=== PATIENT | female | born 1935 | race Caucasian/White ===

== ENCOUNTER → 2022-06-21 14:25 | Outpatient (BNVA) | payer OTHER, MEDICARE, MEDICAID, SELFPAY | PROVIDERS: Visit Provider Nurse Practitioner Family | DX: E11.9 Type 2 diabetes mellitus without complications (principal) | CPT/HCPCS: 83036 ==

== ENCOUNTER → 2022-08-05 15:51 | Outpatient (BNVA) | payer OTHER, MEDICARE, MEDICAID, SELFPAY | PROVIDERS: Visit Provider Family Medicine | DX: I10 Essential (primary) hypertension (principal); E11.9 Type 2 diabetes mellitus without complications; E05.00 Thyrotoxicosis with diffuse goiter without thyrotoxic crisis or storm | CPT/HCPCS: 80053; 80061; 82043; 84443; 85025 ==

== ENCOUNTER → 2023-04-21 11:24 | Outpatient (BNVA) | payer OTHER, MEDICARE, MEDICAID, SELFPAY | PROVIDERS: PCP Nurse Practitioner Family; Visit Provider Nurse Practitioner Family | DX: I10 Essential (primary) hypertension (principal); E11.9 Type 2 diabetes mellitus without complications | CPT/HCPCS: 80053; 80061; 83036; 84443 ==

== ENCOUNTER 2023-10-20 20:02 | Emergency (ER) | payer MEDICARE, MEDICAID, SELFPAY ==
[2023-10-20 20:03] VITALS: BP 142/65; PULSE 65; RESP 20; TEMP 36.6; O2SAT 97; BMI 27.3
--- NOTE | 2023-10-20 20:27 | XRR_ITS ---
PROCEDURE INFORMATION: Exam: XR Chest Exam date and time: 10/20/2023 8:43 PM Age: 88 years old Clinical indication: Other: AMS; Additional info: Altered mental status, reported fall TECHNIQUE: Imaging protocol: Radiologic exam of the chest. Views: 1 view. COMPARISON: No relevant prior studies available. FINDINGS: Lungs: Mild interstitial prominence, predominantly subpleural in distribution and in the mid lateral upper lung zones, likely chronic change. No consolidation. Pleural spaces: Unremarkable. No pleural effusion. No pneumothorax. Heart/Mediastinum: Unremarkable. No cardiomegaly. Bones/joints: Unremarkable. XR/XR chest 1V portable [id number] IMPRESSION: No acute cardiopulmonary disease.
--- NOTE | 2023-10-20 20:27 | CTR_ITS ---
PROCEDURE INFORMATION: Exam: CT Head Without Contrast Exam date and time: 10/20/2023 8:36 PM Age: 88 years old Clinical indication: Injury or trauma; Blunt trauma (contusions or hematomas); Patient HX: Patient says she fell according to her son, denies headache or pain to head from fall. ; Additional info: Fall with chronic altered mental status TECHNIQUE: Imaging protocol: Computed tomography of the head without contrast. Radiation optimization: All CT scans at this facility use at least one of these dose optimization techniques: automated exposure control; mA and/or kV adjustment per patient size (includes targeted exams where dose is matched to clinical indication); or iterative reconstruction. COMPARISON: No relevant prior studies available. RADIATION DOSE METRICS: Total DLP (mGy-cm): 1045 FINDINGS: Brain: There is [id number]-lizpaa cerebral atrophy. There are [id number] deep white matter microangiopathic ischemic changes. No acute hemorrhage is identified. No mass or mass effect is identified. Moderate right encephalomalacia. Cerebral ventricles: Moderately dilated ventricles secondary to atrophy. Paranasal sinuses: Visualized sinuses are unremarkable. No fluid levels. Mastoid air cells: Visualized mastoid air cells are well aerated. Bones/joints: Unremarkable. No acute fracture. Soft tissues: Unremarkable. CT/CT head wo con* [id number] IMPRESSION: 1. No acute intracranial pathology. 2. Senescent changes.
[2023-10-20 21:52] LABS: Basophils # 0.1 10^3/uL (0.0-0.1); Basophils % 0.9 %; Eosinophils # 0.2 10^3/uL (0.0-0.8); Eosinophils % 2.5 %; Lymphocytes # 2.8 10^3/uL (0.8-4.8); Lymphocytes % 28.3 %; Mean Corpuscular HGB Conc 32.6 g/dL (30-55); Mean Corpuscular Hemoglobin 30.6 pg (27-33); Mean Corpuscular Volume 93.8 fl (85-98); Mean Platelet Volume 9.9 fL (7.4-10.4); Monocytes # 0.5 10^3/uL (0.2-0.9); Monocytes % 4.8 %; Neutrophils # 6.15 10^3/uL (1.8-7.7); Neutrophils % 63.2 %; Nucleated Red Blood Cells % 0 %; Platelet Count 166 10^3/cmm (157-399); Red Blood Count 4.05 10^6/uL (3.85-5.65); Red Cell Distribution Width 12.6 % (12.1-15.1); White Blood Count 9.73 10^3/uL (3.29-11.43)
[2023-10-20 22:10] LABS: Alanine Aminotransferase 8 U/L (0-33); Albumin Level 3.7 g/dL (3.5-5.2); Alkaline Phosphatase 75 U/L (35-105); Anion Gap 16.3 (5-19); Aspartate Amino Transferase 9 U/L (0-32); Blood Urea Nitrogen 18 mg/dL (8-23); C Reactive Protein 7.6 mg/L (0.0-4.9); Calcium 8.9 mg/dL (8.5-10.5); Carbon Dioxide 24 mmol/L (22-29); Chloride 103 mmol/L (98-107); Creatinine Clr Calc Pharmacy 30.5427; Globulin 3.5 g/dL (1.3-4.6); Glucose 201 mg/dL (65-115); Osmolality Calculated 296 mOsm/kg (285-295); Potassium 4.3 mmol/L (3.5-5.1); Sodium 139 mmol/L (136-145); Total Bilirubin 0.2 mg/dL (0.15-1.2); Total Protein 7.2 g/dL (6.6-8.7)
[2023-10-20 22:20] LABS: Add Urine Microscopic? YES; Bilirubin Urine 1+ (Negative); Blood Urine Neg (Negative); Glucose Urine UA Norm (Normal); Ketones Urine Negative (Negative); Leukocyte Esterase Urine 2+ (Negative); Nitrate Urine Positive (Negative); Protein Urine Trace (Negative); Urine Appearance Cloudy (CLEAR); Urine Color Yellow (Yellow); Urobilinogen Urine Norm (Negative); pH Urine 5 (5-7)
[2023-10-20 22:21] LABS: Bacteria Urine 2+ /hpf; Hyaline Casts Urine 0-4 /lpf; RBC Urine 0-4 /hpf (0-2); Squamous Epithelial Cell Urine 0-4 /hpf (0-5)
[2023-10-20 22:22] LABS: Add Urine Culture? Yes
--- NOTE | 2023-10-20 22:28 | W.ED.GENADLT ---
HPI - General Adult General: Chief complaint: General Medical Stated complaint: FALL Time Seen by Provider: 10/20/23 20:18 History of Present Illness: 88-year-old female presents to the ER via EMS chief complaint of generalized weakness and fatigue has been going on for about a month patient appears to be a poor historian. Apparently the patient has had multiple frequent falls. Patient has recently suffered a stroke which she was recommended to go to rehab however she went home patient appears that she does not want to be here which her family contacted EMS to pick her up patient has no current complaints however just being aggravated that she is here patient does not recall having any recent falls or striking her head we will continue to follow. Associated symptoms: Reports malaise; Deny chest pain, dyspnea, headache(s), nausea, rash, palpitations or vomiting Review of Systems General: Reports: 10 or more systems reviewed and unremarkable except in HPI and below Const: Reports: fatigue and malaise; Denies: fever(s) or chills Eyes: Denies: change in vision or blurry vision Card: Denies: chest pain or palpitations Resp: Denies: dyspnea or productive cough GI: Denies: abdominal pain, nausea or vomiting : Denies: flank pain Musc: Denies: extremity pain or extremity swelling Skin/Breast: Denies: rash or pruritus Neuro: Denies: headache(s) Psych: Denies: anxiety or depression Eugene/Lymph: Denies: easy bleeding All/Imm: Denies: urticaria, throat swelling or facial swelling PFSH ED PFSH: Medical History Graves disease Hyperlipidemia Hypertension Diabetes Social History Smoking and tobacco/nicotine status: former use of tobacco/nicotine Alcohol intake: never Physical Exam Const: COMMON NORMALS: no acute distress, patient oriented x3 and healthy appearing HENMT: COMMON NORMALS: normocephalic and atraumatic HEAD & SCALP: normocephalic and atraumatic Eye: COMMON NORMALS: Equal, round and reactive pupils present and EOMs intact bilaterally PUPIL: Yes Equal, round and reactive pupils present Neck/C-Spine: COMMON NORMALS: full ROM, supple and no JVD Lymph: LYMPHATIC: no lymphadenopathy noted Chest: COMMONS NORMALS: normal inspection of the chest and normal palpation of entire chest wall Resp: COMMON NORMALS: normal respiratory effort, No retractions and clear to auscultation bilaterally EFFORT & INSPECTION: Yes able to speak in complete sentences and Yes symmetric chest movement AUSCULTATION: clear to auscultation bilaterally Cardio: COMMON NORMALS: no JVD, regular rate and regular rhythm RATE: regular rate RHYTHM: regular rhythm GI: COMMON NORMALS: Normal to inspection, nondistended, normoactive bowel sounds present, Soft to palpation and non-tender INSPECTION: Yes normal to inspection PALPATION: Yes Soft to palpation : COMMON NORMALS: Yes no CVA tenderness BLADDER/KIDNEY EXAM: Yes no CVA tenderness Back/Pelvis: COMMON NORMALS: no CVA tenderness Extremity: COMMON NORMALS: normal to inspection and full ROM Neuro: COMMON NORMALS: patient oriented x3, CN's II-XII intact bilaterally, moves all extremities and no focal motor deficits Psych: COMMON NORMALS: mental status grossly normal, Normal thought process present, cooperative and normal affect THOUGHT PROCESS: Normal thought process present Skin: COMMON NORMALS: no rashes or lesions noted GENERAL SKIN EXAM: no rashes or lesions noted Course Vital Signs: Vital signs: Vital Signs Temperature 98 F 10/20/23 20:03 Pulse Rate 65 10/20/23 20:03 Respiratory Rate 20 H 10/20/23 20:03 Blood Pressure 142/65 10/20/23 20:03 Pulse Oximetry 97 10/20/23 20:03 [facility] - General Adult Medical Decision Making Patient was originally refusing additional workup including lab work and imaging discussed patient and the need for further workup due to her frequent falls and weakness patient was found to have a urinary tract infection as well as be mildly dehydrated patient was provided a dose of Rocephin while in the emergency department will be subsequent discharging her home on some Macrobid did advise further follow-up with primary care in 2 to 3 days in which she was advised return the interim if any of her symptoms persist or worse remainder patient's lab work and imaging came back reassuring. Lab Data 10/20/23 21:50 10/20/23 21:50 Radiology Impressions Chest X-Ray 10/20/23 20:27 IMPRESSION: No acute cardiopulmonary disease. Head CT 10/20/23 20:27 IMPRESSION: 1. No acute intracranial pathology. 2. Senescent changes. Laboratory Results WBC 9.73 10^3/uL (3.29-11.43) 10/20/23 21:50 RBC 4.05 10^6/uL (3.85-5.65) 10/20/23 21:50 Hgb 12.40 g/dL (11.27-16.99) 10/20/23 21:50 Hct 38.0 % (36-47) 10/20/23 21:50 MCV 93.8 fl (85-98) 10/20/23 21:50 MCH 30.6 pg (27-33) 10/20/23 21:50 MCHC 32.6 g/dL (30-55) 10/20/23 21:50 RDW 12.6 % (12.1-15.1) 10/20/23 21:50 Plt Count 166 10^3/cmm (157-399) 10/20/23 21:50 MPV 9.9 fL (7.4-10.4) 10/20/23 21:50 Neut % (Auto) 63.2 % 10/20/23 21:50 Lymph % (Auto) 28.3 % 10/20/23 21:50 [place] % (Auto) 4.8 % 10/20/23 21:50 Eos % (Auto) 2.5 % 10/20/23 21:50 Baso % (Auto) 0.9 % 10/20/23 21:50 Neut # (Auto) 6.15 10^3/uL (1.8-7.7) 10/20/23 21:50 Lymph # (Auto) 2.8 10^3/uL (0.8-4.8) 10/20/23 21:50 [place] # (Auto) 0.5 10^3/uL (0.2-0.9) 10/20/23 21:50 Eos # (Auto) 0.2 10^3/uL (0.0-0.8) 10/20/23 21:50 Baso # (Auto) 0.1 10^3/uL (0.0-0.1) 10/20/23 21:50 Nucleated RBC % (auto) 0 % 10/20/23 21:50 Nucleated RBCs # 0.0 /100WBC 10/20/23 21:50 Sodium 139 mmol/L (136-145) 10/20/23 21:50 Potassium 4.3 mmol/L (3.5-5.1) 10/20/23 21:50 Chloride 103 mmol/L (98-107) 10/20/23 21:50 Carbon Dioxide 24 mmol/L (22-29) 10/20/23 21:50 Anion Gap 16.3 (5-19) 10/20/23 21:50 BUN 18 mg/dL (8-23) 10/20/23 21:50 Creatinine 1.1 mg/dL (0.5-0.9) H 10/20/23 21:50 GFR Calculation Not Reportable 10/20/23 21:50 Glucose 201 mg/dL (65-115) H 10/20/23 21:50 Calculated Osmolality 296 mOsm/kg (285-295) H 10/20/23 21:50 Calcium 8.9 mg/dL (8.5-10.5) 10/20/23 21:50 Total Bilirubin 0.2 mg/dL (0.15-1.2) 10/20/23 21:50 AST 9 U/L (0-32) 10/20/23 21:50 ALT 8 U/L (0-33) 10/20/23 21:50 Alkaline Phosphatase 75 U/L (35-105) 10/20/23 21:50 C-Reactive Protein 7.6 mg/L (0.0-4.9) H 10/20/23 21:50 Total Protein 7.2 g/dL (6.6-8.7) 10/20/23 21:50 Albumin 3.7 g/dL (3.5-5.2) 10/20/23 21:50 Globulin 3.5 g/dL (1.3-4.6) 10/20/23 21:50 Urine Color Yellow (Yellow) 10/20/23 22:07 Urine Appearance Cloudy (CLEAR) A 10/20/23 22:07 Urine pH 5 (5-7) 10/20/23 22:07 Ur Specific [place] 1.020 (1.005-1.030) 10/20/23 22:07 Urine Protein Trace (Negative) 10/20/23 22:07 Urine Glucose (UA) Norm (Normal) 10/20/23 22:07 Urine Ketones Negative (Negative) 10/20/23 22:07 Urine Blood Neg (Negative) 10/20/23 22:07 Urine Nitrate Positive (Negative) H 10/20/23 22:07 Urine Bilirubin 1+ (Negative) H 10/20/23 22:07 Urine Urobilinogen Norm mg/dL (Negative) 10/20/23 22:07 Ur Leukocyte Esterase 2+ (Negative) H 10/20/23 22:07 Urine RBC 0-4 /hpf (0-2) H 10/20/23 22:07 Urine WBC 5-10 /hpf (0-5) H 10/20/23 22:07 Ur Squamous Epith Cells 0-4 /hpf (0-5) H 10/20/23 22:07 Amorphous Sediment Not Reportable 10/20/23 22:07 Urine Bacteria 2+ /hpf (NONE) H 10/20/23 22:07 Hyaline Casts 0-4 /lpf H 10/20/23 22:07 All radiology interpretation(s) finalized by discharge Discharge Plan Discharge Patient Disposition: Home Clinical Impression: Generalized weakness Urinary tract infection Qualifiers: Urinary tract infection type: acute cystitis Condition: Stable Prescriptions: New Macrobid 100 mg capsule 100 mg PO BID 7 Days Qty: 14 0RF Rx Instructions: must administer with a meal/food No Action Janumet 50-1,000 mg tablet 1 tab PO BID Qty: 180 3RF telmisartan 40 mg tablet 40 mg PO DAILY Qty: 90 3RF polymyxin B sulf-trimethoprim [Polytrim] 10,000 unit- 1 mg/mL drops 1 drp ophthalmic (eye) Q3H 7 Days Qty: 10 0RF Rx Instructions: while awake; do not exceed 6 doses in 24 hours cetirizine [Zyrtec] 10 mg tablet 10 mg PO DAILY Qty: 14 0RF Discharge Orders: Discharge ED (Routine); Ordered 10/20/23 Ordered By: Vasquez Treviño Discharge Diet: Advance as tolerated and As Directed Discharge Activity: Increase activity as tolerated Patient Instructions: Fall Prevention (ED), Urinary Tract Infection - Women, Weakness (Generalized) Activity Restrictions/Additional Instructions: Please further follow-up primary care in 3 to 5 days encourage increased p.o. intake of fluids take antibiotics for your urinary tract infection in which please return the interim if any of your symptoms persist or worse. Coding Level of Care Code ED Hotel Lobby Concierge for Anahi Duggan
[2023-10-20] MEDS: cefTRIAXone 1,000 MG in sodium chloride 0.9% (plus) 50 ML 100 MG IV (22:37)
[2023-10-20 22:59] VITALS: BP 142/65; PULSE 65; RESP 20; TEMP 36.6; O2SAT 97
== END 2023-10-21 00:26 | disposition home or self-care (01) ==
PROVIDERS: Emergency Provider Emergency Medicine
DX: N30.00 Acute cystitis without hematuria (principal); R53.1 Weakness; E78.5 Hyperlipidemia, unspecified; I10 Essential (primary) hypertension; E11.9 Type 2 diabetes mellitus without complications; Z87.891 Personal history of nicotine dependence
CPT/HCPCS: 70450; 71045; 80053; 81001; 85025; 86140; 87077; 87086; 87186; 96374; 99285; J0696

== ENCOUNTER 2023-11-25 14:46 | Inpatient (IN) | payer MEDICARE, MEDICAID, SELFPAY ==
[2023-11-25] VITALS (7 sets, daily range): BP systolic 149–187; BP diastolic 76–109; PULSE 70–124; RESP 16–18; TEMP 36.7–36.8; O2SAT 94–96; BMI 29.9
[2023-11-25 15:31] LABS: Add Urine Microscopic? YES; Bacteria Urine 1+ /hpf; Bilirubin Urine 1+ (Negative); Blood Urine Neg (Negative); Glucose Urine UA Norm (Normal); Ketones Urine 1+ (Negative); Leukocyte Esterase Urine Negative (Negative); Mucus Urine TRACE /hpf; Nitrate Urine Negative (Negative); Protein Urine 1+ (Negative); Specific Gravity, Urine 1.025 (1.005-1.030); Urine Appearance Clear (CLEAR); Urine Color Yellow (Yellow); Urobilinogen Urine Norm (Negative); WBC Urine 0-4 /hpf (0-5); pH Urine 5 (5-7)
[2023-11-25 15:32] LABS: Add Urine Culture? No; Amorphous Sediment Urine 1+ /hpf; Fine Granular Casts Urine 15-25 /lpf
[2023-11-25 17:14] LABS: Basophils # 0.1 10^3/uL (0.0-0.1); Basophils % 1.2 %; Eosinophils # 0.2 10^3/uL (0.0-0.8); Eosinophils % 2.3 %; Hematocrit 48.9 % (36-47); Lymphocytes # 1.5 10^3/uL (0.8-4.8); Lymphocytes % 14.5 %; Mean Corpuscular HGB Conc 32.5 g/dL (30-55); Mean Corpuscular Hemoglobin 29.9 pg (27-33); Mean Corpuscular Volume 92.1 fl (85-98); Mean Platelet Volume 11.6 fL (7.4-10.4); Monocytes # 0.6 10^3/uL (0.2-0.9); Monocytes % 5.5 %; Neutrophils # 7.91 10^3/uL (1.8-7.7); Neutrophils % 75.7 %; Nucleated Red Blood Cells % 0 %; Platelet Count 179 10^3/cmm (157-399); Red Blood Count 5.31 10^6/uL (3.85-5.65); Red Cell Distribution Width 12.7 % (12.1-15.1); White Blood Count 10.45 10^3/uL (3.29-11.43)
[2023-11-25 17:26] LABS: Alanine Aminotransferase 8 U/L (0-33); Alkaline Phosphatase 103 U/L (35-105); Anion Gap 20.8 (5-19); Aspartate Amino Transferase 11 U/L (0-32); Blood Urea Nitrogen 26 mg/dL (8-23); Calcium 9.8 mg/dL (8.5-10.5); Carbon Dioxide 21 mmol/L (22-29); Chloride 102 mmol/L (98-107); Globulin 4.9 g/dL (1.3-4.6); Glucose 192 mg/dL (65-115); Osmolality Calculated 300 mOsm/kg (285-295); Potassium 3.8 mmol/L (3.5-5.1); Sodium 140 mmol/L (136-145); Total Bilirubin 0.4 mg/dL (0.15-1.2); Total Protein 8.9 g/dL (6.6-8.7)
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
--- NOTE | 2023-11-25 20:34 | ECG_ITS ---
[facility] Test Date: 2023-11-25 Pat Name: Norah Costa Department: Room: 268 Gender: Female Dial Polisher: : 1935 Requested By: Randall Casey Order Number: [id number] Swathi MD: Rolando García M.D. Measurements Intervals [place] Rate: 82 P: 90 IN: 144 QRS: -14 QRSD: 70 T: 29 QT: 326 QTc: 382 Interpretive Statements SINUS RHYTHM WITH OCCASIONAL SUPRAVENTRICULAR PREMATURE COMPLEXES NONSPECIFIC ST & T-WAVE ABNORMALITY No previous ECG available for comparison Electronically Signed On 11-26-2023 11:09:07 CDT by Rolando García M.D. [email or web address]
--- NOTE | 2023-11-25 20:54 | PC.NURSE ---
this nurse, Amalia VELÁSQUEZ, Kimberli VELÁSQUEZ, and [facility] all attempted to insert an IV in patient. pt refused multiple times and jerked IV out, blowing the vein multiple times.
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
[2023-11-25] MEDS: enoxaparin 40 mg/0.4 mL Syringe SUBCUT (21:57)
[2023-11-25] MEDS: amlodipine 10 mg Tablet PO (21:57)
[2023-11-25 22:01] LABS: Procalcitonin 0.11 ng/mL (0-0.5)
[2023-11-25] MEDS: pantoprazole 40 mg SDV IVP (22:05)
[2023-11-25 22:32] LABS: Chol HDL Ratio 3.58 mg/dL (0.0-4.40); Cholesterol 172 mg/dL (0-200); HDL Cholesterol 48 mg/dL (60-100); LDL Cholesterol Calculated 72 mg/dL (50-129); Thyroid Stimulating Hormone 2.97 uIU/mL (0.27-4.20); Triglycerides 259 mg/dL (0-150)
[2023-11-25 22:35] LABS: Estmated Average Glucose 148; Hemoglobin A1C 6.8 % (4.0-6.0)
[2023-11-25] MEDS: hyDRALAzine 10 mg Tablet PO (23:38)
[2023-11-26] VITALS (10 sets, daily range): BP systolic 129–179; BP diastolic 72–98; PULSE 74–97; RESP 16–18; TEMP 36.3–38.1; O2SAT 91–94
--- NOTE | 2023-11-26 00:09 | ECG_ITS ---
[facility] Test Date: 2023-11-26 Pat Name: Norah Costa Department: Room: 268 Gender: Female Heating And Cooling Systems Engineer: : 1935 Requested By: Mendez Bullock Order Number: [id number] Swathi MD: Rolando García M.D. Measurements Intervals [place] Rate: 131 P: 0 IN: 0 QRS: -28 QRSD: 68 T: 29 QT: 288 QTc: 426 Interpretive Statements ATRIAL FIBRILLATION WITH RAPID VENTRICULAR RESPONSE BORDERLINE LEFT AXIS DEVIATION [QRS AXIS < -20] LOW QRS VOLTAGE IN PRECORDIAL LEADS [QRS DEFLECTION < 1.0 mV IN CHEST LEADS] MODERATE VOLTAGE CRITERIA FOR LVH, CONSIDER NORMAL VARIANT [MEETS CRITERIA IN ONE OF: R(aVL), S(V1), R(V5), R(V5/V6)+S(V1)] NONSPECIFIC ST & T-WAVE ABNORMALITY Compared to ECG 11/25/2023 20:34:52 Low QRS voltage now present Sinus rhythm no longer present T-wave abnormality still present Electronically Signed On 11-26-2023 11:06:32 CDT by Rolando García M.D. [id number]
--- NOTE | 2023-11-26 00:52 | USCV_ITS ---
Norah Costa Age: 88 Gender: F : 1935 Exam Date: 11/26/2023 09:45 Ordering Phys: Mendez Bullock MD Technologist: Aaron Millan [place] [facility] [place]ication: afib BP: 152 / 78 HR: 81 Rhythm: Sinus Technical Quality: Adequate MEASUREMENTS (Male / Female) Normal Values 2D ECHO LVOT Diameter 2.0 cm LV Ejection Fraction MOD 2C 62.0 % LV Ejection Fraction 2C AL 66.7 % LA Diameter 3.3 cm RA Systolic Volume 4C AL 30.7 ml RA Systolic Volume 4C MOD 29.4 ml Aorta at Sinotubular Diameter 2.3 cm IVC Diameter 1.4 cm M-MODE LA Ao Ratio MM 1.1 AV Cusp Separation MM 0.9 cm DOPPLER AV Peak Velocity 181.3 cm/s LVOT Peak Velocity 119.0 cm/s AV Area Cont Eq vti 2.2 cm squared AV Area Cont Eq pk 2.1 cm squared MV Peak Velocity 193.3 cm/s MV Area PHT 6.8 cm squared Mitral E to A Ratio 0.6 TV Peak Velocity 95.0 cm/s TR Peak Velocity 97.0 cm/s TR Peak Gradient 3.8 mmHg TR Mean Velocity 76.0 cm/s TR Mean Gradient 2.5 mmHg TR Velocity Time Integral 20.3 cm PV Peak Velocity 107.0 cm/s RV Ejection Time 0.2 s FINDINGS Left Ventricle Left atrial is normal in size. LV systolic function is normal with EF of 60 to 65%. No regional wall motion abnormalities are seen. Grade 1 diastolic dysfunction Right Ventricle Normal in size and function Right Atrium Normal in size Left Atrium Dilated Mitral Valve Mild mitral annular calcification. Trace mitral regurgitation Aortic Valve Aortic valve is thickened. No significant stenosis or regurgitation. Tricuspid Valve Insufficient TR jet to evaluate RVSP. Pulmonic Valve Not well visualized Pericardium Normal Aorta Normal in size IVC Appears to be normal CONCLUSIONS LV systolic function is normal with EF of 60-65% Grade 1 diastolic dysfunction Left atrial dilation Trace mitral regurgitation No comparison studies are available Rolando García MD (Electronically Signed) Final Date: 26 November 2023 12:00 S
[2023-11-26] MEDS: metoprolol tartrate 25 mg Tablet PO ×2 (01:17→13:59)
--- NOTE | 2023-11-26 01:45 | PC.RESP ---
Order for EKG at 0049 was canceled due to duplicate order please see EKG done at 0009.
--- NOTE | 2023-11-26 02:52 | ECG_ITS ---
[facility] Test Date: 2023-11-26 Pat Name: Norah Costa Department: Room: 268 Gender: Female Senior Compliance Analyst: : 1935 Requested By: Mendez Bullock Order Number: [id number] Reading MD: Rolando García M.D. Measurements Intervals [place] Rate: 77 P: 44 [place]: 140 QRS: -18 QRSD: 101 T: 55 QT: 394 QTc: 446 Interpretive Statements SINUS RHYTHM NONSPECIFIC T-WAVE ABNORMALITY Compared to ECG 11/26/2023 00:16:52 Atrial fibrillation no longer present T-wave abnormality still present Electronically Signed On 11-26-2023 11:16:36 CDT by Rolando García M.D. [id number]
[2023-11-26 03:24] LABS: Basophils # 0.1 10^3/uL (0.0-0.1); Basophils % 1.1 %; Eosinophils # 0.5 10^3/uL (0.0-0.8); Eosinophils % 3.7 %; Hematocrit 36.5 % (36-47); Lymphocytes # 2.3 10^3/uL (0.8-4.8); Lymphocytes % 17.4 %; Mean Corpuscular HGB Conc 33.4 g/dL (30-55); Mean Corpuscular Hemoglobin 30.4 pg (27-33); Monocytes # 0.9 10^3/uL (0.2-0.9); Monocytes % 6.8 %; Neutrophils # 9.21 10^3/uL (1.8-7.7); Neutrophils % 70.5 %; Nucleated Red Blood Cells % 0 %; Platelet Count 231 10^3/cmm (157-399); Red Blood Count 4.01 10^6/uL (3.85-5.65); Red Cell Distribution Width 12.7 % (12.1-15.1); White Blood Count 13.07 10^3/uL (3.29-11.43)
[2023-11-26 03:41] LABS: Troponin(5th) Baseline 74 ng/L (0-10)
[2023-11-26 03:43] LABS: Alanine Aminotransferase 6 U/L (0-33); Albumin Level 3.4 g/dL (3.5-5.2); Alkaline Phosphatase 80 U/L (35-105); Anion Gap 17.7 (5-19); Aspartate Amino Transferase 9 U/L (0-32); Blood Urea Nitrogen 25 mg/dL (8-23); Calcium 8.6 mg/dL (8.5-10.5); Carbon Dioxide 21 mmol/L (22-29); Chloride 105 mmol/L (98-107); Creatinine Clr Calc Pharmacy 43.9301; Globulin 3.4 g/dL (1.3-4.6); Glucose 217 mg/dL (65-115); Magnesium 1.5 mg/dL (1.7-2.3); Magnesium 1.6 mg/dL (1.7-2.3); Osmolality Calculated 301 mOsm/kg (285-295); Phosphorus 2.9 mg/dL (2.5-4.5); Potassium 3.7 mmol/L (3.5-5.1); Sodium 140 mmol/L (136-145); Total Bilirubin 0.4 mg/dL (0.15-1.2); Total Protein 6.8 g/dL (6.6-8.7)
--- NOTE | 2023-11-26 04:32 | ECG_ITS ---
[facility] Test Date: 2023-11-26 Pat Name: Norah Costa Department: Room: 268 Gender: Female Enrollment Manager: : 1935 Requested By: Mendez Bullock Order Number: [id number] Reading MD: Rolando García M.D. Measurements Intervals [place] Rate: 84 P: -32 [place]: 167 QRS: -30 QRSD: 85 T: 30 QT: 383 QTc: 455 Interpretive Statements SINUS RHYTHM WITH OCCASIONAL SUPRAVENTRICULAR PREMATURE COMPLEXES BORDERLINE LEFT AXIS DEVIATION [QRS AXIS < -20] NONSPECIFIC T-WAVE ABNORMALITY Compared to ECG 11/26/2023 02:44:02 No significant changes Electronically Signed On 11-26-2023 11:13:50 CDT by Rolando García M.D. [id number]
[2023-11-26 06:24] LABS: Troponin 5 2HR 69.93 ng/L (0-10)
[2023-11-26 06:32] LABS: Troponin 5 2HR Delta -4.07 ABS# (0-10)
[2023-11-26 06:40] LABS: Glucose Point of Care 204 mg/dL (70-110)
[2023-11-26] MEDS: insulin lispro 100 unit/1 mL SUBCUT ×2 (08:52→20:48)
[2023-11-26] MEDS: amlodipine 10 mg Tablet PO (08:52)
[2023-11-26] MEDS: losartan 50 mg Tablet 100 MG PO (08:52)
[2023-11-26 09:29] LABS: Troponin 5 6HR 63.99 ng/L (0-10)
--- NOTE | 2023-11-26 09:30 | XRR_ITS ---
PROCEDURE INFORMATION: Exam: XR Lumbosacral Spine Exam date and time: 11/26/2023 9:24 AM Age: 88 years old Clinical indication: Low back pain; Additional info: Back pain, UTI TECHNIQUE: Imaging protocol: Radiologic exam of the lumbosacral spine. Views: 2 or 3 views. COMPARISON: No relevant prior studies available. FINDINGS: Bones/joints: No acute fracture. Normal alignment. 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 Soft tissues: Sacral stimulator device noted in the right low back/gluteal region. XR/XR lumbar spine 2-3V* [id number] IMPRESSION: No acute findings. 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
--- NOTE | 2023-11-26 09:30 | CTR_ITS ---
PROCEDURE INFORMATION: Exam: CT Head Without Contrast Exam date and time: 11/26/2023 9:23 AM Age: 88 years old Clinical indication: Altered mental status/memory loss; Additional info: AMS TECHNIQUE: Imaging protocol: Computed tomography of the head without contrast. Radiation optimization: All CT scans at this facility use at least one of these dose optimization techniques: automated exposure control; mA and/or kV adjustment per patient size (includes targeted exams where dose is matched to clinical indication); or iterative reconstruction. COMPARISON: CT head wo con* [id number] 10/20/2023 8:36 PM RADIATION DOSE METRICS: Total DLP (mGy-cm): 1076.04 FINDINGS: Brain: Cytotoxic edema involving a large region of the right MCA vascular territory including aspects of the right frontal, parietal, and temporal lobes. Encephalomalacia from old infarct noted in the right occipital lobe. Advanced diffuse cerebral atrophy and sequela of chronic small vessel ischemic disease. Cerebral ventricles: No ventriculomegaly. Paranasal sinuses: Visualized sinuses are unremarkable. No fluid levels. Mastoid air cells: Visualized mastoid air cells are well aerated. Bones/joints: Unremarkable. No acute fracture. Soft tissues: Unremarkable. CT/CT head wo con* [id number] IMPRESSION: Large acute infarct in the right MCA distribution.
[2023-11-26 09:44] LABS: Troponin 5 6HR Delta -10.01 ng/L (0-12)
[2023-11-26 11:03] LABS: Glucose Point of Care 149 mg/dL (70-110)
[2023-11-26] MEDS: aspirin 300 mg Supp PR (11:48)
[2023-11-26] MEDS: acetaminophen 325 mg Tablet 650 MG PO (14:01)
--- NOTE | 2023-11-26 14:07 | PC.SLP ---
SALES AND SERVICE CONSULTANT went to patient's room and noted that her condition was different from that described by her chart. Her nurse indicated that she appears to be having more stroke-like symptoms. SALES AND SERVICE CONSULTANT and nurse decided to wait until tomorrow to try to feed her since she appears to be having a change in her status.
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
[2023-11-26 16:27] LABS: Glucose Point of Care 201 mg/dL (70-110)
[2023-11-26] MEDS: sodium chloride 0.9% 1,000 ML 75 ML IV (20:32)
[2023-11-26] MEDS: acetaminophen 650 mg Supp PR (20:35)
[2023-11-26 20:41] LABS: Glucose Point of Care 198 mg/dL (70-110)
[2023-11-26] MEDS: pantoprazole 40 mg SDV IVP (20:42)
[2023-11-26] MEDS: enoxaparin 40 mg/0.4 mL Syringe SUBCUT (20:42)
[2023-11-27] VITALS (8 sets, daily range): BP systolic 134–179; BP diastolic 69–90; PULSE 72–111; RESP 16–18; TEMP 36.7–38.1; O2SAT 89–95
[2023-11-27 02:21] LABS: Basophils # 0.1 10^3/uL (0.0-0.1); Eosinophils # 0.4 10^3/uL (0.0-0.8); Hematocrit 36.2 % (36-47); Lymphocytes # 2.1 10^3/uL (0.8-4.8); Lymphocytes % 18.1 %; Mean Corpuscular HGB Conc 33.4 g/dL (30-55); Mean Corpuscular Hemoglobin 30.6 pg (27-33); Mean Corpuscular Volume 91.6 fl (85-98); Mean Platelet Volume 11.2 fL (7.4-10.4); Monocytes # 0.9 10^3/uL (0.2-0.9); Monocytes % 8.1 %; Neutrophils # 7.95 10^3/uL (1.8-7.7); Neutrophils % 69.2 %; Nucleated Red Blood Cells % 0 %; Platelet Count 215 10^3/cmm (157-399); Red Blood Count 3.95 10^6/uL (3.85-5.65); Red Cell Distribution Width 12.8 % (12.1-15.1)
[2023-11-27 03:21] LABS: Alanine Aminotransferase 6 U/L (0-33); Albumin Level 3.3 g/dL (3.5-5.2); Alkaline Phosphatase 80 U/L (35-105); Anion Gap 15.7 (5-19); Aspartate Amino Transferase 10 U/L (0-32); Blood Urea Nitrogen 29 mg/dL (8-23); Calcium 8.6 mg/dL (8.5-10.5); Carbon Dioxide 23 mmol/L (22-29); Chloride 107 mmol/L (98-107); Creatinine Clr Calc Pharmacy 24.9893; Globulin 3.6 g/dL (1.3-4.6); Glucose 163 mg/dL (65-115); Magnesium 1.7 mg/dL (1.7-2.3); Osmolality Calculated 303 mOsm/kg (285-295); Phosphorus 2.6 mg/dL (2.5-4.5); Potassium 3.7 mmol/L (3.5-5.1); Sodium 142 mmol/L (136-145); Total Bilirubin 0.4 mg/dL (0.15-1.2); Total Protein 6.9 g/dL (6.6-8.7)
[2023-11-27] MEDS: acetaminophen 650 mg Supp PR (03:56)
[2023-11-27 06:17] LABS: Glucose Point of Care 160 mg/dL (70-110)
[2023-11-27] MEDS: insulin lispro 100 unit/1 mL SUBCUT ×3 (08:14→17:46)
[2023-11-27] MEDS: aspirin 300 mg Supp PR (08:14)
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
[2023-11-27] MEDS: sodium chloride 0.9% 1,000 ML 75 ML IV (09:49)
--- NOTE | 2023-11-27 10:21 | PC.CHAP ---
Pastoral Care Encounter/Spiritual Assessment Type of Contact [] Declined pile driving technician visit [] Patient/Family/Request visit [] Outpatient visit [] Follow-up visit [] Physician referral [] Code/Alert [X] Routine visit [] Staff referral [] Actively dying [] Patient sleeping [] Family support [] [] Out of room [] Palliative care [] [] Receiving care in room [] Pre-surgical visit [] Trauma [] Long length of stay [] ICU visit [] Other: Relational/Emotional Strength [] Patient feels connected with others/family/visitors/staff [] Distress [] Loneliness/isolation [] Abandonment Spirituality of Patient [] Person of Dotty [] Attends Advent of their Dotty [] Believes in Prayer [] Reads Bible or Mormon materials [] There are Spiritual issues to be addressed Transplant Surgeon Interventions [X] Prayer [] Active listening [] Non-anxious presence [] Spiritual/emotional support [] Crisis/trauma care [] Spiritual counseling [] Bereavement support [] Provided bereavement packet [] Provided Bible/devotional materials [] Provided toy/stuffed animal, coloring book to patient or family member [] Provided Communion [] Anointing/[place] [] Salvation [] Completed spiritual assessment [] Other: Impact on Illness or Injury [] Angry [] Fearful [] Anxious [] Often cries [] Exhaustion [] Unable to work [] Unable to attend yarsanism [] Unable to walk/stand [] Unable to read [] Unable to drive [] Unable to eat/drink [] Unable to sleep [] Unable to be with family [] Patient intubated [] Other: Summary NON RESPONSIVE Time spent with patient
[2023-11-27 11:52] LABS: Glucose Point of Care 152 mg/dL (70-110)
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
[2023-11-27 16:52] LABS: Glucose Point of Care 190 mg/dL (70-110)
[2023-11-27 20:57] LABS: Glucose Point of Care 123 mg/dL (70-110)
[2023-11-27] MEDS: enoxaparin 30 mg/0.3 mL Syringe SUBCUT (22:04)
[2023-11-27] MEDS: atorvastatin 40 mg Tablet PO (22:04)
[2023-11-27] MEDS: pantoprazole 40 mg SDV IVP (22:05)
[2023-11-28] VITALS (9 sets, daily range): BP systolic 156–183; BP diastolic 71–91; PULSE 64–107; RESP 17–20; TEMP 36.4–37.8; O2SAT 93–95
[2023-11-28] MEDS: sodium chloride 0.9% 1,000 ML 75 ML IV ×2 (00:05→13:06)
[2023-11-28] MEDS: metoprolol tartrate 25 mg Tablet PO ×2 (01:47→13:34)
[2023-11-28 05:20] LABS: Basophils # 0.2 10^3/uL (0.0-0.1); Basophils % 1.3 %; Eosinophils # 0.5 10^3/uL (0.0-0.8); Eosinophils % 4.5 %; Hematocrit 36.5 % (36-47); Lymphocytes % 17.1 %; Mean Corpuscular HGB Conc 31.8 g/dL (30-55); Mean Corpuscular Hemoglobin 29.9 pg (27-33); Mean Corpuscular Volume 94.1 fl (85-98); Mean Platelet Volume 10.9 fL (7.4-10.4); Monocytes # 0.9 10^3/uL (0.2-0.9); Monocytes % 7.1 %; Neutrophils # 8.19 10^3/uL (1.8-7.7); Nucleated Red Blood Cells % 0 %; Platelet Count 192 10^3/cmm (157-399); Red Blood Count 3.88 10^6/uL (3.85-5.65); Red Cell Distribution Width 12.7 % (12.1-15.1); White Blood Count 11.89 10^3/uL (3.29-11.43)
[2023-11-28 05:44] LABS: Alanine Aminotransferase 6 U/L (0-33); Albumin Level 3.2 g/dL (3.5-5.2); Alkaline Phosphatase 78 U/L (35-105); Anion Gap 16.4 (5-19); Aspartate Amino Transferase 14 U/L (0-32); Blood Urea Nitrogen 22 mg/dL (8-23); Calcium 8.5 mg/dL (8.5-10.5); Carbon Dioxide 21 mmol/L (22-29); Chloride 110 mmol/L (98-107); Glucose 197 mg/dL (65-115); Magnesium 1.7 mg/dL (1.7-2.3); Osmolality Calculated 307 mOsm/kg (285-295); Phosphorus 2.9 mg/dL (2.5-4.5); Potassium 3.4 mmol/L (3.5-5.1); Sodium 144 mmol/L (136-145); Total Bilirubin 0.4 mg/dL (0.15-1.2); Total Protein 7.2 g/dL (6.6-8.7)
[2023-11-28 06:38] LABS: Glucose Point of Care 183 mg/dL (70-110)
[2023-11-28] MEDS: insulin lispro 100 unit/1 mL SUBCUT ×4 (08:28→21:48)
--- NOTE | 2023-11-28 09:01 | PC.CHAP ---
Pastoral Care Encounter/Spiritual Assessment Type of Contact [] Declined commercial account officer visit [] Patient/Family/Request visit [] Outpatient visit [] Follow-up visit [] Physician referral [] Code/Alert [x] Routine visit [] Staff referral [] Actively dying [] Patient sleeping [] Family support [] [] Out of room [] Palliative care [] [] Receiving care in room [] Pre-surgical visit [] Trauma [] Long length of stay [] ICU visit [] Other: Relational/Emotional Strength [] Patient feels connected with others/family/visitors/staff [x] Distress [x] Loneliness/isolation [] Abandonment Spirituality of Patient [] Person of Dotty [] Attends Uatsdin of their Dotty [] Believes in Prayer [] Reads Bible or Uatsdin materials [] There are Spiritual issues to be addressed First Responder Interventions [x] Prayer [] Active listening [x] Non-anxious presence [x] Spiritual/emotional support [] Crisis/trauma care [] Spiritual counseling [] Bereavement support [] Provided bereavement packet [] Provided Bible/devotional materials [] Provided toy/stuffed animal, coloring book to patient or family member [] Provided Communion [] Anointing/[place] [] Salvation [x] Completed spiritual assessment [] Other: Impact on Illness or Injury [] Angry [] Fearful [] Anxious [] Often cries [] Exhaustion [] Unable to work [] Unable to attend cheondoism [] Unable to walk/stand [] Unable to read [] Unable to drive [] Unable to eat/drink [] Unable to sleep [] Unable to be with family [] Patient intubated [] Other: Summary Time spent with patient 5 min
[2023-11-28] MEDS: aspirin 325 mg Tablet PO (09:21)
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
[2023-11-28 11:21] LABS: Glucose Point of Care 164 mg/dL (70-110)
[2023-11-28] MEDS: potassium chloride ER 20 mEq Tablet 40 MEQ PO (11:40)
[2023-11-28 16:56] LABS: Glucose Point of Care 173 mg/dL (70-110)
[2023-11-28 20:47] LABS: Glucose Point of Care 156 mg/dL (70-110)
[2023-11-28] MEDS: enoxaparin 30 mg/0.3 mL Syringe SUBCUT (21:47)
[2023-11-28] MEDS: pantoprazole 40 mg SDV IVP (21:48)
[2023-11-28] MEDS: atorvastatin 40 mg Tablet PO (21:48)
[2023-11-29] VITALS (9 sets, daily range): BP systolic 156–194; BP diastolic 70–84; PULSE 56–100; RESP 14–19; TEMP 36.7–37.3; O2SAT 91–96
[2023-11-29] MEDS: sodium chloride 0.9% 1,000 ML 75 ML IV ×2 (02:24→16:33)
[2023-11-29] MEDS: metoprolol tartrate 25 mg Tablet PO ×2 (02:26→14:48)
[2023-11-29 06:43] LABS: Glucose Point of Care 156 mg/dL (70-110)
--- NOTE | 2023-11-29 08:25 | PC.SOCIAL ---
Pg 2 IMM Explained to pt's son via phone, Pg 2 IMM. No questions voiced. Provided pt a copy. Initialed, dated, & timed a copy & placed in chart.
[2023-11-29] MEDS: aspirin 325 mg Tablet PO (08:52)
[2023-11-29] MEDS: insulin lispro 100 unit/1 mL SUBCUT ×3 (08:52→17:59)
[2023-11-29 09:17] LABS: Glucose Point of Care 230 mg/dL (70-110)
[2023-11-29] MEDS: hyDRALAzine 20 mg/mL INJ 1 mL 10 MG IVP (09:24)
--- NOTE | 2023-11-29 09:33 | PC.NURSE ---
This nurse at bedside assessing patient. Upon assessment, left arm and legs are still flaccid. Patient awake, but not able to answer any questions. Blood pressure is trending upward, 194/81. Physician notified. Plan of care ongoing.
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
[2023-11-29 11:12] LABS: Glucose Point of Care 226 mg/dL (70-110)
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
[2023-11-29 17:27] LABS: Glucose Point of Care 152 mg/dL (70-110)
[2023-11-29 21:14] LABS: Glucose Point of Care 140 mg/dL (70-110)
[2023-11-29] MEDS: pantoprazole 40 mg SDV IVP (21:53)
[2023-11-30] VITALS (14 sets, daily range): BP systolic 153–199; BP diastolic 68–101; PULSE 65–116; RESP 12–20; TEMP 36.1–37.2; O2SAT 90–99
[2023-11-30] MEDS: sodium chloride 0.9% 1,000 ML 75 ML IV ×2 (04:28→17:08)
[2023-11-30 06:30] LABS: Glucose Point of Care 165 mg/dL (70-110)
--- NOTE | 2023-11-30 10:33 | PC.NURSE ---
Addendum entered by Anjelica Marie LPN 11/30/23 10:44: This nurse along with CHRISTEN Tapia called patients sonÓscar, to obtain verbal consent for PEG tube placement. Original Note: This nurse called Óscar issa, to help in the completion of pre-op checklist prior to PEG tube placement.
[2023-11-30 10:59] LABS: Glucose Point of Care 158 mg/dL (70-110)
--- NOTE | 2023-11-30 12:53 | PC.NURSE ---
Pt to GI lab for PEG placement at 1254 by CHRISTEN Lowry and CHRISTEN Malone via [facility].
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
[2023-11-30] MEDS: sodium chloride 0.9% 1,000 ML 30 ML IV (13:23)
--- NOTE | 2023-11-30 14:04 | P.PN_ITS ---
Vitals/I&O/Wt Last Vital Signs Temp 97.9 F 11/30/23 13:15 Pulse 74 11/30/23 13:15 Resp 18 11/30/23 13:15 BP 177/79 11/30/23 13:15 Pulse Ox 94 11/30/23 13:15 O2 Del Method Room Air 11/30/23 13:15 11/29/23 11/30/23 11/30/23 22:59 06:59 14:59 Intake Total 1080 / 1560 893.75 / 2453.75 Balance 1080 / 1560 893.75 / 2453.75 Weight last 48 hrs Weight 164 lb 6.4 oz Weight 167 lb 8 oz Data 11/28/23 04:33 11/28/23 04:33 A&P Assessment and plan (1) Adult failure to thrive: (2) Acute right MCA stroke: Plan PEG tube placement The risks and benefits of the procedure, including bleeding, infection, intestinal perforation requiring surgery, missed lesion were explained to the patient. The patient is understanding of the risks and wishes to proceed. Attestations 2 Medical Necessity Statement*: Per primary Coding Level of Care Code Acute Code for Chg Fwd Diagnoses Adult failure to thrive R62.7 Acute right MCA stroke I63.511
--- NOTE | 2023-11-30 14:11 | P.ANESASSM_ITS ---
Pre-Anesthetic Assessment Height/Weight: Height 1.52 m Weight 74.571 kg Temp Pulse Resp BP Pulse Ox O2 Del Method 97.9 F 74 18 177/79 94 Room Air 11/30/23 13:15 11/30/23 13:15 11/30/23 13:15 11/30/23 13:15 11/30/23 13:15 11/30/23 13:15 Operation Date: 11/30/23 13:45 Proposed Procedures p PEG Tube Insertion(Left) - Gregory Mcdonald, DO Was Beta Sophie taken within 24 hours: N/A Was Clonidine taken within 24 hours: N/A Social No alcohol and No tobacco Airway Submandibular: within normal limits Cervical ROM: within normal limits Pulmonary None reported CV/HEM Hypertension None reported Hepatic Acute Encephalopathy GI None reported Metabolic Diabetes Mellitus and Hyperlipidemia Neuropsych Cerebrovascular Accident and Dementia Altered mental status Anesthetic Plan ASA status: 3 Anesthesia: General and MAC Risk of > 500 ml blood loss (7ml/kg in children): No Medications/Allergies Home Medications Medication Instructions Recorded Confirmed Last Taken Type sitagliptin phosphate 50 1 tab PO BID #180 tabs 04/21/23 11/25/23 11/25/23 Rx mg-metformin 1,000 mg tablet (Janumet) telmisartan 40 mg tablet 40 mg PO DAILY #90 tabs 04/21/23 11/25/23 11/25/23 Rx cefdinir 300 mg capsule 300 mg PO Q12H 11/25/23 11/25/23 11/25/23 History cetirizine 10 mg tablet (Zyrtec) 10 mg PO DAILY PRN Allergy Symptoms 11/25/23 11/25/23 Unknown History Allergies Allergy/AdvReac Type Severity Reaction Status Date / Time Sulfa (Sulfonamide Allergy Unknown Verified 11/25/23 15:32 Antibiotics) Current Medications Generic Name Dose Route Start Last Admin Trade Name Freq PRN Reason Stop Dose Admin Acetaminophen 650 mg 11/25/23 21:38 11/26/23 14:01 Acetaminophen 325 Mg Tablet PO 650 mg Q6H PRN Administration Mild/Mod Pain Or Temp >/= 101 Acetaminophen 650 mg 11/26/23 20:14 11/27/23 03:56 Acetaminophen 650 Mg Supp UT 650 mg Q4H PRN Administration MILD PAIN OR INCREASE TEMP Amlodipine Besylate 10 mg 11/25/23 21:38 11/26/23 08:52 Amlodipine 10 Mg Tablet PO 10 mg DAILY ALLEY Administration Atorvastatin Calcium 40 mg 11/26/23 21:00 11/29/23 21:49 Atorvastatin 40 Mg Tablet PO Not Given BEDTIME ALLEY Hydralazine HCl 10 mg 11/25/23 23:33 11/25/23 23:38 Hydralazine 10 Mg Tablet PO 10 mg Q12H ALLEY Administration Hydralazine HCl 10 mg 11/26/23 10:39 11/29/23 09:24 Hydralazine 20 Mg/Ml Inj 1 Ml IVP 10 mg Q4H PRN Administration SBP More than 180 mmhg Sodium Chloride 1,000 mls @ 75 mls/hr 11/26/23 20:30 11/30/23 04:28 Sodium Chloride 0.9% IV 75 mls/hr .[id number] ALLEY Administration Sodium Chloride 1,000 mls @ 30 mls/hr 11/30/23 13:15 11/30/23 13:23 Sodium Chloride 0.9% IV 12/01/23 13:14 30 mls/hr .Q24H ALLEY Administration Insulin Human Lispro 0 unit 11/26/23 12:00 11/30/23 11:20 Insulin Lispro 100 Unit/1 Ml SUBCUT Not Given WM&BEDTIME ALLEY Protocol Losartan Potassium 100 mg 11/26/23 09:00 11/26/23 08:52 Losartan 50 Mg Tablet PO 100 mg DAILY ALLEY Administration Metoprolol Tartrate 25 mg 11/26/23 01:00 11/30/23 02:31 Metoprolol Tartrate 25 Mg Tablet PO Not Given Q12H ALLEY Pantoprazole Sodium 40 mg 11/25/23 21:38 11/29/23 21:53 Pantoprazole 40 Mg Sdv IVP 40 mg Q24H ALLEY Administration PFSH Anesthesia Medical History Graves disease Hyperlipidemia Hypertension Diabetes Surgical History History of appendectomy History of tonsillectomy H/O adenoidectomy History of total knee arthroplasty bilateral Social History Smoking and tobacco/nicotine status: former use of tobacco/nicotine Alcohol intake: never Data Anesthesia 11/28/23 04:33 11/28/23 04:33 Cardiac Studies: 2 Echocardiogram 11/26/23
--- NOTE | 2023-11-30 15:02 | ANE.PACU2 ---
Inpatient post-anesthesia follow up: Airway intact: Yes Vital signs: Temperature 97 F Pulse Rate 85 Respiratory Rate 16 Blood Pressure 199/82 Pulse Oximetry 99 Oxygen Delivery Me thod Nasal Cannula Oxygen Flow Rate 2 Fraction of Inspir ed Oxygen Hydration adequate: Yes Nausea and vomiting: No Pain level: 2 Mental status: Baseline
--- NOTE | 2023-11-30 15:22 | PC.NURSE ---
This nurse assumed care of pt again at 1518. Pt safely brought up from GI lab in [facility] by CHRISTEN Gross.
[2023-11-30 17:07] LABS: Glucose Point of Care 166 mg/dL (70-110)
--- NOTE | 2023-11-30 18:35 | PC.NURSE ---
Patient currently has a manual BP of 200/80. Gave 10mg IVP hydralazine to Regina Elizabeth RN to push on pt. Notified Dr. Contreras. New order for PO hydralazine 25mg BID ordered.
[2023-11-30] MEDS: hyDRALAzine 20 mg/mL INJ 1 mL 10 MG IVP (18:39)
[2023-11-30] MEDS: dextrose 10% 250 ML 500 ML IV (20:36)
[2023-11-30] MEDS: atorvastatin 40 mg Tablet PO (20:44)
[2023-11-30] MEDS: pantoprazole 40 mg SDV IVP (20:44)
[2023-11-30 21:28] LABS: Glucose Point of Care 366 mg/dL (70-110)
[2023-11-30 21:28] LABS: Glucose Point of Care 48 mg/dL (70-110)
--- NOTE | 2023-11-30 22:36 | PC.NURSE ---
Patient had a blood sugar of 48, she was awake and alert. Patient was given some thickened orange juice but is an aspiration risk and needs to drink very slow. Dr. Diego was notified and patient was given D10W per hypoglycemia protocol.
[2023-11-30] MEDS: acetaminophen 325 mg Tablet 650 MG PO (23:07)
[2023-11-30] MEDS: hyDRALAzine 10 mg Tablet PO (23:07)
--- NOTE | 2023-11-30 23:31 | PC.NURSE ---
Patient has been drinking thickened liquids and eating jello and has had episodes of coughing afterwards. Dr. Diego notified and diet order changed to NPO.
[2023-11-30 23:35] LABS: Glucose Point of Care 344 mg/dL (70-110)
[2023-12-01] VITALS (12 sets, daily range): BP systolic 114–163; BP diastolic 67–92; PULSE 69–114; RESP 16–19; TEMP 36.4–37.1; O2SAT 92–96; BMI 33.0
[2023-12-01] MEDS: sodium chloride 0.9% 1,000 ML 75 ML IV ×2 (05:18→17:44)
[2023-12-01 05:34] LABS: Basophils # 0.1 10^3/uL (0.0-0.1); Basophils % 0.9 %; Eosinophils # 0.4 10^3/uL (0.0-0.8); Eosinophils % 3.4 %; Hematocrit 32.4 % (36-47); Lymphocytes # 2.4 10^3/uL (0.8-4.8); Lymphocytes % 18.1 %; Mean Corpuscular HGB Conc 33.3 g/dL (30-55); Mean Corpuscular Hemoglobin 30.3 pg (27-33); Mean Corpuscular Volume 90.8 fl (85-98); Mean Platelet Volume 10.4 fL (7.4-10.4); Monocytes # 0.7 10^3/uL (0.2-0.9); Monocytes % 5.6 %; Neutrophils # 9.22 10^3/uL (1.8-7.7); Neutrophils % 70.8 %; Nucleated Red Blood Cells % 0 %; Platelet Count 146 10^3/cmm (157-399); Red Blood Count 3.57 10^6/uL (3.85-5.65); Red Cell Distribution Width 12.5 % (12.1-15.1); White Blood Count 13.02 10^3/uL (3.29-11.43)
[2023-12-01 05:50] LABS: Anion Gap 12.9 (5-19); Blood Urea Nitrogen 18 mg/dL (8-23); Calcium 7.8 mg/dL (8.5-10.5); Carbon Dioxide 22 mmol/L (22-29); Chloride 106 mmol/L (98-107); Creatinine Clr Calc Pharmacy 46.1891; Glucose 235 mg/dL (65-115); Osmolality Calculated 295 mOsm/kg (285-295); Sodium 138 mmol/L (136-145)
[2023-12-01 05:56] LABS: Potassium 2.9 mmol/L (3.5-5.1)
[2023-12-01] MEDS: potassium chloride premix 100 ML 50 MEQ IV ×2 (06:16→09:22)
[2023-12-01 06:39] LABS: Glucose Point of Care 235 mg/dL (70-110)
[2023-12-01] MEDS: amlodipine 10 mg Tablet PO (09:19)
[2023-12-01] MEDS: hyDRALAzine 25 mg Tablet PO ×2 (09:20→17:26)
[2023-12-01] MEDS: losartan 50 mg Tablet 100 MG PO (09:20)
--- NOTE | 2023-12-01 09:56 | PC.SOCIAL ---
IMM Update Pg 2 of IMM Updated. Copy provided at bedside.
--- NOTE | 2023-12-01 10:33 | PC.NUTR ---
Consult for PEG TF received. Recommend Glucerna 1.5 continuous, beginning at 15 mls/hr increasing 10 mls Q8H as tolerated to goal rate of 25 mls/hr with FWF 80mls Q4H or per MD discretion. Details in RD assessment.
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
[2023-12-01 11:11] LABS: Glucose Point of Care 208 mg/dL (70-110)
[2023-12-01 11:31] LABS: Bilirubin Urine Neg (Negative); Blood Urine Neg (Negative); Glucose Urine UA 2+ (Normal); Ketones Urine Negative (Negative); Leukocyte Esterase Urine Negative (Negative); Nitrate Urine Negative (Negative); Protein Urine Trace (Negative); Urine Appearance SL Hazy (CLEAR); Urine Color Yellow (Yellow); Urobilinogen Urine Neg (Negative); pH Urine 5 (5-7)
[2023-12-01 11:32] LABS: Add Urine Culture? No; Add Urine Microscopic? YES; RBC Urine 0-4 /hpf (0-2); Squamous Epithelial Cell Urine 15-25 /hpf (0-5)
[2023-12-01] MEDS: aspirin 81 mg EC Tablet PO (11:46)
[2023-12-01] MEDS: enoxaparin 30 mg/0.3 mL Syringe SUBCUT (11:46)
[2023-12-01] MEDS: acetaminophen 325 mg Tablet 650 MG PO (11:50)
[2023-12-01] MEDS: HYDROmorphone 1 mg/mL INJ 1 mL 0.5 MG IVP (14:12)
[2023-12-01] MEDS: metoprolol tartrate 25 mg Tablet PO (14:25)
--- NOTE | 2023-12-01 15:11 | P.PN_ITS ---
Subjective 2 Subjective: Patient seen and examined. Tube feeding has not been done yet, which is appropriate. She denies any pain. Vitals/I&O/Wt Last Vital Signs Temp 98.2 F 12/01/23 11:45 Pulse 85 12/01/23 11:45 Resp 16 12/01/23 14:12 BP 134/72 12/01/23 11:45 Pulse Ox 92 12/01/23 14:12 O2 Del Method Room Air 12/01/23 11:45 O2 Flow Rate 2 11/30/23 14:57 12/01/23 12/01/23 12/01/23 06:59 14:59 22:59 Intake Total 912.5 / 2352.5 260 / 260 Balance 912.5 / 2352.5 260 / 260 Weight last 48 hrs Weight 169 lb Weight 164 lb 6.4 oz Physical Exam 2 Narrative: General: No acute distress, awake alert and oriented x 2, not to place Abdomen: Soft, appropriately tender, nondistended, no erythema or exudate Data 12/01/23 05:15 12/01/23 05:15 A&P Assessment and plan (1) Adult failure to thrive: (2) Acute right MCA stroke: Plan Status post PEG tube placement Feedings may begin this afternoon per dietary Medical management per hospitalist Attestations 2 Medical Necessity Statement*: Per primary Coding Level of Care Code 03813 Diagnoses Adult failure to thrive R62.7 Acute right MCA stroke I63.511
[2023-12-01 16:57] LABS: Glucose Point of Care 213 mg/dL (70-110)
[2023-12-01] MEDS: insulin lispro 100 unit/1 mL SUBCUT ×2 (17:26→21:27)
[2023-12-01 21:05] LABS: Glucose Point of Care 173 mg/dL (70-110)
[2023-12-01] MEDS: pantoprazole 40 mg SDV IVP (21:28)
[2023-12-01] MEDS: atorvastatin 40 mg Tablet PO (21:28)
[2023-12-02] VITALS (10 sets, daily range): BP systolic 126–155; BP diastolic 67–81; PULSE 73–95; RESP 15–17; TEMP 36.4–37.4; O2SAT 92–94
[2023-12-02] MEDS: metoprolol tartrate 25 mg Tablet PO ×2 (03:20→14:45)
[2023-12-02 06:35] LABS: Glucose Point of Care 184 mg/dL (70-110)
[2023-12-02] MEDS: sodium chloride 0.9% 1,000 ML 70 ML IV (07:34)
[2023-12-02] MEDS: aspirin 81 mg EC Tablet PO (08:33)
[2023-12-02] MEDS: losartan 50 mg Tablet 100 MG PO (08:33)
[2023-12-02] MEDS: amlodipine 10 mg Tablet PO (08:34)
[2023-12-02] MEDS: insulin lispro 100 unit/1 mL SUBCUT ×4 (08:34→22:06)
[2023-12-02] MEDS: hyDRALAzine 25 mg Tablet PO ×2 (08:34→17:25)
[2023-12-02] MEDS: enoxaparin 30 mg/0.3 mL Syringe SUBCUT (10:52)
[2023-12-02 11:07] LABS: Glucose Point of Care 166 mg/dL (70-110)
--- NOTE | 2023-12-02 16:15 | P.PN_ITS ---
Subjective 2 Subjective: Patient seen and examined. She is not talking right now. No pain to palpation of abdomen Vitals/I&O/Wt Last Vital Signs Temp 98.7 F 12/02/23 12:06 Pulse 76 12/02/23 12:06 Resp 16 12/02/23 12:06 BP 133/71 12/02/23 12:06 Pulse Ox 94 12/02/23 12:06 O2 Del Method Room Air 12/02/23 12:06 O2 Flow Rate 2 11/30/23 14:57 12/02/23 12/02/23 12/02/23 06:59 14:59 22:59 Intake Total 160 / 2507.5 879.667 / 879.667 Balance 160 / 2507.5 879.667 / 879.667 Weight last 48 hrs Weight 172 lb 6 oz Weight 169 lb Physical Exam 2 Narrative: General: No acute distress, she is not talking right now Abdomen: Soft, nontender, nondistended, no erythema or exudate Data 12/01/23 05:15 12/01/23 05:15 A&P Assessment and plan (1) PEG (percutaneous endoscopic gastrostomy) adjustment/replacement/removal: Plan Postoperative day #2 status post PEG tube placement Tube feeds per dietary No further surgical intervention Medical management per hospitalist Attestations 2 Medical Necessity Statement*: Per primary Coding Level of Care Code 43383 Diagnoses PEG (percutaneous endoscopic gastrostomy) adjustment/replacement/removal Z43.1
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
[2023-12-02 17:11] LABS: Glucose Point of Care 180 mg/dL (70-110)
[2023-12-02] MEDS: ketorolac 30 mg/mL INJ IVP (18:03)
[2023-12-02 21:15] LABS: Glucose Point of Care 174 mg/dL (70-110)
[2023-12-02] MEDS: atorvastatin 40 mg Tablet PO (22:05)
[2023-12-02] MEDS: pantoprazole 40 mg SDV IVP (22:05)
[2023-12-03] VITALS (9 sets, daily range): BP systolic 128–164; BP diastolic 54–81; PULSE 66–94; RESP 16–19; TEMP 36.4–36.7; O2SAT 93–94; BMI 33.7
[2023-12-03] MEDS: metoprolol tartrate 25 mg Tablet PO ×2 (02:28→14:20)
[2023-12-03 07:35] LABS: Glucose Point of Care 254 mg/dL (70-110)
[2023-12-03] MEDS: insulin lispro 100 unit/1 mL SUBCUT ×4 (09:07→21:52)
[2023-12-03] MEDS: hyDRALAzine 25 mg Tablet PO ×2 (09:07→17:07)
[2023-12-03] MEDS: losartan 50 mg Tablet 100 MG PO (09:07)
[2023-12-03] MEDS: aspirin 81 mg EC Tablet PO (09:08)
[2023-12-03] MEDS: amlodipine 10 mg Tablet PO (09:08)
[2023-12-03] MEDS: enoxaparin 40 mg/0.4 mL Syringe SUBCUT (09:57)
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
[2023-12-03 11:29] LABS: Glucose Point of Care 179 mg/dL (70-110)
[2023-12-03] MEDS: ketorolac 30 mg/mL INJ IVP ×2 (14:01→21:52)
[2023-12-03 16:56] LABS: Glucose Point of Care 189 mg/dL (70-110)
--- NOTE | 2023-12-03 20:42 | P.PN_ITS ---
Subjective 2 Subjective: Patient seen and examined. Tolerating tube feeds at goal. Denies any abdominal pain. Vitals/I&O/Wt Last Vital Signs Temp 97.9 F 12/03/23 19:27 Pulse 73 12/03/23 19:27 Resp 18 12/03/23 19:27 BP 141/62 12/03/23 19:27 Pulse Ox 94 12/03/23 19:27 O2 Del Method Room Air 12/03/23 19:27 O2 Flow Rate 2 11/30/23 14:57 12/03/23 12/03/23 12/03/23 06:59 14:59 22:59 Intake Total 220 / 220 Balance 220 / 220 Weight last 48 hrs Weight 172 lb 12.8 oz Weight 172 lb 6 oz Physical Exam 2 Narrative: General: No acute distress, oriented to self and time only Abdomen: Soft, nontender, nondistended, no erythema or exudate Data 12/01/23 05:15 12/01/23 05:15 A&P Assessment and plan (1) PEG (percutaneous endoscopic gastrostomy) adjustment/replacement/removal: Plan Postoperative day #3 status post PEG tube placement Tube feeds per dietary No further surgical intervention Medical management per hospitalist Attestations 2 Medical Necessity Statement*: Her primary Coding Level of Care Code 62579 Diagnoses PEG (percutaneous endoscopic gastrostomy) adjustment/replacement/removal Z43.1
[2023-12-03 20:44] LABS: Glucose Point of Care 164 mg/dL (70-110)
[2023-12-03] MEDS: pantoprazole 40 mg SDV IVP (21:51)
[2023-12-03] MEDS: atorvastatin 40 mg Tablet PO (21:51)
[2023-12-04] VITALS (13 sets, daily range): BP systolic 123–170; BP diastolic 55–82; PULSE 63–79; RESP 17–21; TEMP 36.5–36.9; O2SAT 91–95
[2023-12-04] MEDS: metoprolol tartrate 25 mg Tablet PO ×2 (02:44→16:17)
[2023-12-04 06:30] LABS: Glucose Point of Care 205 mg/dL (70-110)
[2023-12-04] MEDS: aspirin 81 mg EC Tablet PO (09:02)
[2023-12-04] MEDS: amlodipine 10 mg Tablet PO (09:02)
[2023-12-04] MEDS: insulin lispro 100 unit/1 mL SUBCUT ×4 (09:02→21:03)
[2023-12-04] MEDS: hyDRALAzine 25 mg Tablet PO ×2 (09:02→18:06)
[2023-12-04] MEDS: losartan 50 mg Tablet 100 MG PO (09:02)
--- NOTE | 2023-12-04 10:03 | PC.SOCIAL ---
IMM Update pg 2 of IMM not updated. Level 2 is pending and patient is not anticipated to DC in 24-48 hours. Copy left @ bedside. Copy placed in chart.
[2023-12-04 10:56] LABS: Glucose Point of Care 199 mg/dL (70-110)
[2023-12-04] MEDS: enoxaparin 40 mg/0.4 mL Syringe SUBCUT (11:17)
--- NOTE | 2023-12-04 12:09 | PC.NUTR ---
If Patient remains on Glucerna 1.2 instead of Glucerna 1.5, recommend increasing goal rate to 35 mls/hr to meet 91-93% of estimated protein and calorie needs. Details in RD assessment.
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
[2023-12-04 16:52] LABS: Glucose Point of Care 196 mg/dL (70-110)
[2023-12-04] MEDS: ketorolac 30 mg/mL INJ IVP (18:05)
[2023-12-04 20:28] LABS: Glucose Point of Care 172 mg/dL (70-110)
[2023-12-04] MEDS: atorvastatin 40 mg Tablet PO (21:02)
[2023-12-04] MEDS: pantoprazole 40 mg SDV IVP (21:53)
[2023-12-05] VITALS (11 sets, daily range): BP systolic 118–171; BP diastolic 57–87; PULSE 66–88; RESP 16–20; TEMP 36.4–36.8; O2SAT 94–97
[2023-12-05] MEDS: metoprolol tartrate 25 mg Tablet PO ×2 (02:33→14:12)
[2023-12-05 06:41] LABS: Glucose Point of Care 235 mg/dL (70-110)
[2023-12-05] MEDS: aspirin 81 mg EC Tablet PO (08:02)
[2023-12-05] MEDS: insulin lispro 100 unit/1 mL SUBCUT ×4 (08:02→21:07)
[2023-12-05] MEDS: hyDRALAzine 25 mg Tablet PO ×2 (08:02→17:33)
[2023-12-05] MEDS: amlodipine 10 mg Tablet PO (08:02)
[2023-12-05] MEDS: losartan 50 mg Tablet 100 MG PO (08:02)
[2023-12-05 10:55] LABS: Glucose Point of Care 212 mg/dL (70-110)
[2023-12-05] MEDS: enoxaparin 40 mg/0.4 mL Syringe SUBCUT (11:41)
--- NOTE | 2023-12-05 12:37 | PC.SOCIAL ---
IMM Update pg 2 of IMM updated and reviewed w/ patients son via phone.
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
[2023-12-05 13:20] LABS: SARS Covid-2 Antigen negative (Negative)
--- NOTE | 2023-12-05 15:05 | PC.NURSE ---
report called to Anais VELÁSQUEZ at [facility].
[2023-12-05 16:48] LABS: Glucose Point of Care 194 mg/dL (70-110)
[2023-12-05 20:38] LABS: Glucose Point of Care 167 mg/dL (70-110)
[2023-12-05] MEDS: atorvastatin 40 mg Tablet PO (21:07)
== END 2023-12-05 23:32 | disposition skilled nursing facility (03) | DRG 65 ==
LOC: ER 20:00 → MEDSURG 20:15
PROVIDERS: Student in an Organized Health Care Education/Training Program; Surgery; Admitting Provider Family Medicine; Emergency Provider Internal Medicine; Visit Provider Internal Medicine
PROC: 0DH63UZ Insertion of Feeding Device into Stomach, Percutaneous Approach (ICD-10-PCS; CPT 43246; principal; 2023-11-30 13:45)
DX: I63.511 Cerebral infarction due to unspecified occlusion or stenosis of right middle cerebral artery (principal); G81.94 Hemiplegia, unspecified affecting left nondominant side; G93.40 Encephalopathy, unspecified; T76.01XA Adult neglect or abandonment, suspected, initial encounter; I10 Essential (primary) hypertension; Z68.33 Body mass index [BMI] 33.0-33.9, adult; I16.0 Hypertensive urgency; R62.7 Adult failure to thrive; I48.91 Unspecified atrial fibrillation; F03.90 Unspecified dementia, unspecified severity, without behavioral disturbance, psychotic disturbance, mood disturbance, and anxiety; E78.5 Hyperlipidemia, unspecified; E11.9 Type 2 diabetes mellitus without complications; Z79.84 Long term (current) use of oral hypoglycemic drugs; Z87.891 Personal history of nicotine dependence
CPT/HCPCS: 36415; 36416; 43246; 70450; 72100; 80048; 80053; 80061; 81001; 82962; 83036; 83735; 84100; 84145; 84443; 84484; 85025; 87426; 92507; 92523; 92526; 92610; 93005; 93306; 94664; 96372; 97165; 97535; 99285; C9113; G0378; J0360; J1170; J1650; J1815; J1885; J2704; J3010; J3480; J7030; J7799